=== PATIENT | male | born 1990 | race Caucasian/White ===

== ENCOUNTER 2024-03-14 08:09 | Outpatient (CLI) | payer BC ==
[2024-03-14] MEDS ORDERED: Iopamidol 370 76% 100 ML VIAL ONE (11:03)
== END 2024-03-14 08:10 | disposition home or self-care (01) ==
LOC: CSHCT 08:09
PROVIDERS: ATTEND Family Medicine
DX: S30.1XXD Contusion of abdominal wall, subsequent encounter (principal)
CPT/HCPCS: 74177; Q9967